=== PATIENT | female | born 1985 | race Caucasian/White ===

== ENCOUNTER → 2016-10-22 | Outpatient (CLI) | payer BC ==
[~2016-10-22] MED LIST: ACET-749 PO; LEVO125T5 PO; PRENTAB26 PO
== END | disposition home or self-care (01) ==
LOC: C.LABSPEC 17:36
PROVIDERS: ATTEND Physician Assistant
DX: L29.8 Other pruritus (principal)

== ENCOUNTER → 2017-08-09 | Outpatient (CLI) | payer BC | END | disposition home or self-care (01) | LOC: C.LAB1850 15:38 | PROVIDERS: ATTEND Obstetrics & Gynecology | DX: Z34.90 Encounter for supervision of normal pregnancy, unspecified, unspecified trimester (principal); Z3A.00 Weeks of gestation of pregnancy not specified ==

== ENCOUNTER → 2017-08-11 | Outpatient (CLI) | payer BC | END | disposition home or self-care (01) | LOC: C.LAB1850 16:08 | PROVIDERS: ATTEND Obstetrics & Gynecology | DX: Z34.90 Encounter for supervision of normal pregnancy, unspecified, unspecified trimester (principal) ==

== ENCOUNTER → 2017-09-01 | Outpatient (CLI) | payer BC ==
[~2017-09-01] MED LIST changes: +IBUP-1050 PO; +MISCCAP80 PO; +MULT-506 PO; +SULFASALAZINE PO
== END | disposition home or self-care (01) ==
LOC: C.LAB1850 11:45
PROVIDERS: ATTEND Obstetrics & Gynecology
DX: O02.1 Missed abortion (principal)

== ENCOUNTER → 2017-09-08 | Outpatient (CLI) | payer BC ==
[2017-09-08 17:20] LABS: BASO % 0.3 %; BASO ABS # 0.02 K/uL (0-0.2); EOS % 0.8 %; EOS ABS # 0.05 K/uL (0-0.5); HEMATOCRIT 34.9 % (37-47); HEMOGLOBIN 12.3 g/dL (12.0-16.0); IG# 0.01 K/uL (0.00-0.02); LYMPH % 28.8 %; LYMPH ABS # 1.76 K/uL (1.2-3.4); MEAN CORPUSCULAR HEMOGLOBIN 31.4 pg (25-34); MEAN CORPUSCULAR HGB CONC 35.2 g/dl (32-36); MEAN PLATELET VOLUME 9.3 fL (7.4-10.4); MONO ABS # 0.43 K/uL (0.11-0.59); NEUT % 62.9 %; NEUT ABS # 3.84 K/uL (1.4-6.5); PLATELET COUNT 271 K/uL (130-400); RED CELL DISTRIBUTION WIDTH CV 12.4 % (11.5-14.5); RED CELL DISTRIBUTION WIDTH SD 39.8 fL (36.4-46.3); WHITE BLOOD COUNT 6.11 K/uL (4.8-10.8)
== END | disposition home or self-care (01) ==
LOC: C.LAB1850 16:45
PROVIDERS: ATTEND Obstetrics & Gynecology
DX: Z01.818 Encounter for other preprocedural examination (principal)

== ENCOUNTER → 2017-09-09 | Day surgery (SDC) | payer BC ==
[2017-09-08 11:48] VITALS: BMI 24.0
--- NOTE | 2017-09-08 17:31 | HISTORY & PHYSICAL EXAMINATION ---
DATE OF ADMISSION: 09/09/2017 PREOPERATIVE HISTORY AND PHYSICAL ADMITTING DIAGNOSES: 1. Missed . 2. Failed medical therapy. ADMISSION HISTORY: The patient is a 32-year-old 6, para 3-0-2-3 at approximately 10 weeks gestational age who is admitted for a suction D&E for missed AB. The patient's missed AB was diagnosed 2 weeks ago on ultrasound, which showed an intrauterine with no cardiac activity. The patient elected to follow this expectantly to see if she would miscarry on her own, a week later there had been no bleeding. The patient had a repeat ultrasound which showed no change and she opted for Cytotec induction. The patient received 800 mcg of Cytotec 24 hours apart x2. She had some spotting, but no passages of tissue. Treatment options were discussed further and she has opted for surgical evacuation of uterine contents. PAST MEDICAL HISTORY: OBSTETRICAL: x3. GYNECOLOGICAL: As above. MEDICAL: Manning syndrome, hypothyroidism, primary aldosteronism, psoriasis arthropathy, and seborrheic dermatitis. SURGICAL: Laparoscopic cholecystectomy, hip replacement, wisdom teeth extraction, and shoulder surgery. ALLERGIES: No known drug allergies. MEDICATIONS: Levothyroxine. SOCIAL HISTORY: No smoking. FAMILY HISTORY: Noncontributory. REVIEW OF SYSTEMS: As per HPI. ADMISSION PHYSICAL EXAMINATION: GENERAL: Shows a pleasant female in no acute distress. VITAL SIGNS: Blood pressure 120/76, height of 5 feet 5 inches, a weight of 144 pounds. HEENT EXAMINATION: Unremarkable. NECK: Supple. LUNGS: Clear. HEART: With a regular rhythm and rate. ABDOMEN: Soft, nontender. PELVIC: Shows normal external genitalia. The vaginal vault is pink and rugated. Cervical os is multiparous and closed. Bimanual examination shows an anterior 8-9 week size uterus. Adnexa show no palpable masses. RECTAL: Confirmatory. EXTREMITIES: Shows no deep calf tenderness. NEUROLOGIC: Grossly intact. IMPRESSION: A 32-year-old 6, para 3-0-2-3 at 10 weeks gestational age for suction dilation and evacuation for missed . PLAN: The risks, benefits and alternatives to the surgery have been discussed. While the benefits will be removal of gestational tissue, the risks are bleeding, infection, inadvertent perforation of the uterus, and failure to remove all gestational tissue. The patient understands, the permit has been signed, and she wishes to proceed. MTDD
[~2017-09-09] VITALS: Ht 162.6 cm; Wt 64.1 kg
[~2017-09-09] MED LIST changes: -ACET-749 PO; +ATROPINE SULFATE 0.1 MG/ML 5ML SYR IV PRN; +CARBOPROST TROMETHAMINE 250 MCG/ML AMP ONE; +CHECK SCOPOLAMINE PATCH PLACEMENT SCH; +DOXYCYCLINE HYCLATE 100 MG CAP PO SCH; +DOXYCYCLINE HYCLATE 100 MG CAP PO STA; +EpHEDrine SULFATE INJ 50 MG/ML AMP IV PRN; +FENTANYL CITRATE INJ 50 MCG/1 ML 2 ML VIAL IV PRN; +FENTANYL CITRATE INJ 50 MCG/1 ML 2 ML VIAL ONE; +HYDROmorphone INJ 1 MG/ML SYR IV PRN; +KETOROLAC TROMETHAMINE 30 MG/ML VIAL ONE; +LACTATED RINGER'S 1000ML 1,000 ML IV SCH; +LIDOCAINE HCL 2% 2 ML VIAL (20MG/ML) ONE; +METHYLERGONOVINE MALEATE 0.2 MG/ML AMP ONE; +MIDAZOLAM HCL 1 MG/ML 2ML VIAL ONE; +NURSING VERBAL MED ORDER ONE; +ONDANSETRON INJ 2 MG/ML 2 ML VIAL IV PRN; +ONDANSETRON INJ 2 MG/ML 2 ML VIAL ONE; +OXYCODONE/ACETAMINOPHEN 5-325 TAB PO PRN; -PRENTAB26 PO; +PROMETHAZINE HCL INJ 25 MG in SODIUM CHLORIDE 0.9% 50ML 50 ML IV PRN; +PROPOFOL IV EMULSION 10 MG/ML 20 ML VIAL IV ONE; +SCOPOLAMINE 1.5 MG TDSY TD ONE; +SILVER NITR/POTASSIUM NITRATE APPLICATOR ONE; +SODIUM CHLORIDE 0.9% 1000ML 1,000 ML IV SCH
[2017-09-09 10:31] VITALS: BP 140/70; PULSE 70; TEMP 36.7; O2SAT 100; Ht 162.6 cm; Wt 64.1 kg
--- NOTE | 2017-09-09 12:51 | History & Physical Bridge Note ---
H&P Re-Evaluation Bridge Note: I have examined the patient, reviewed the History & Physical and in the interval since the performance of the History & Physical I have noted the following changes of clinical significance: Discussed informed consent with patient; she had previously signed this in the office after counseling with Dr Puente. All questions answered. Will proceed with surgery.
--- NOTE | 2017-09-09 13:30 | [facility] Post Operative Brief Note ---
Immediate Operative Summary Operative Date Sep 09, 2017. Pre-Operative Diagnosis Missed Post-Operative Diagnosis Missed Procedure(s) Performed Dilation and Evacuation Surgeon Dr Lawson Manager Project Surgeon(s) None Estimated Blood Loss 100cc Findings Consistent with Post-Op Diagnosis Specimens A: Products of Conception Drains bladder drained prior to procedure Anesthesia Type General Complication(s) none Disposition Accompanied Pt To Recover: no Disposition: Recovery Room / PACU
--- NOTE | 2017-09-09 13:37 | Discharge Instructions ---
Discharge Instructions Date of Service Sep 09, 2017. Visit Reason for Visit: Missed Discharge Discharge Diagnosis / Problem: Same Discharge Goals Goal(s): Therapeutic intervention Activity Recommendations Activity Limitations: per Instructions/Follow-up section Anesthesia . Post Anesthesia Instructions: If you have had General Anesthesia or IV Sedation: * Do not drive today. * Resume driving when surgeon permits. * Do not make important decisions or sign legal documents today. * Call surgeon for: 1. Temperature elevations greater than 101 degrees F. 2. Uncontrollable pain. 3. Excessive bleeding. 4. Persistent nausea and vomiting. 5. Medication intolerance (nausea, vomiting or rash). * For nausea and vomiting use only clear liquids such as: tea, soda, bouillon until nausea subsides, then gradually increase diet as tolerated. * If you have any concerns or questions, call your surgeon's office. If physician is unavailable and it is an emergency, call 911 or go to the nearest emergency room. . Instructions / Follow-Up Instructions / Follow-Up ACTIVITY RECOMMENDATIONS: * Avoid tampons, douching, hot tubs, pools, and intercourse until bleeding has stopped. * May shower as usual. * No strenuous activity for 24-48 hours. After 24-48 hours, you may do anything you feel like doing (driving and sports are okay). SPECIAL CARE INSTRUCTIONS: Special Diet: * Mild nausea may occur in the immediate post-operative period. * Take clear liquids such as tea, cola or bouillon until all nausea has subsided; you may then resume your normal diet. Special Care: * Light bleeding and vaginal spotting can last from a few days to 3-4 weeks. Call your doctor if bleeding becomes heavier than the heaviest part of your period. * Check your temperature twice a day for one week. If it goes above 100.4 degrees Fahrenheit (38.0 Celsius), notify your doctor. * Call your doctor's office for an appointment for 6 weeks after your surgery. FOLLOW-UP VISIT: Call your doctor's office for an appointment for 2 weeks after your surgery. E-PRESCRIPTION FOR FLAGYL (antibiotic, used to prevent infection after D&E) WAS SENT TO [facility] FOR [facility]. Diet Recommendations Recommended Home Diet: resume previous diet Procedures Procedures Performed: Dilation and Evacuation Pending Studies Studies pending at discharge: no Medical Emergencies . Who to Call and When: Medical Emergencies: If at any time you feel your situation is an emergency, please call 911 immediately. . Non-Emergent Contact Non-Emergency issues call your: Primary Care Provider, Piece Worker . . "Provider Documentation" section prepared by Osiris Lawson. .
--- NOTE | 2017-09-09 13:50 | DIAGNOSTIC IMAGING REPORT ---
INTRAOPERATIVE PELVIC ULTRASOUND GUIDANCE CLINICAL HISTORY: MrChai Portion. COMPARISON STUDY: None. FINDINGS: Transabdominal scanning of the pelvis was performed for intraoperative guidance. The initial image demonstrates a cystic area within the endometrium which could represent a gestational sac. The following images demonstrate evacuation of this cystic area. The final image demonstrates gas within the normal thickness endometrium. IMPRESSION: Intraoperative pelvic ultrasound guidance provided for dilatation and evacuation. Electronically signed by: Mekhi Mcneil M.D. 09/09/2017 1:48 PM Dictated Date/Time: 09/09/2017 1:47 PM
[2017-09-09 14:30] VITALS: BP 115/73; PULSE 77; TEMP 36.5; O2SAT 98
[2017-09-09 14:56] LABS: CALCIUM 8.3 mg/dl (8.5-10.1); CREATININE 0.49 mg/dl (0.60-1.20); POTASSIUM 3.9 mmol/L (3.5-5.1)
[2017-09-09 15:00] VITALS: BP 117/74; PULSE 76; TEMP 36.5; O2SAT 97
--- NOTE | 2017-09-09 15:15 | Anesthesiology Progress Note ---
Anesthesia Post Op Note Date & Time Sep 09, 2017 at 15:06 Vital Signs Pain Intensity: 2 Vital Signs Past 12 Hours Date Time Temp Pulse Resp B/P (MAP) Pulse Ox O2 Delivery O2 Flow Rate FiO2 09/09/17 14:30 36.5 77 16 115/73 98 Room Air 09/09/17 14:20 77 15 128/78 97 Room Air 09/09/17 14:10 36.3 72 13 122/75 98 Room Air 09/09/17 14:00 80 13 127/79 100 Oxymask 10 09/09/17 13:50 79 20 125/84 100 Oxymask 10 09/09/17 13:40 36.2 103 12 140/94 100 Oxymask 10 09/09/17 10:31 36.7 70 16 140/70 (93) 100 Room Air Notes Mental Status: alert / awake / arousable, participated in evaluation Pt Amnestic to Procedure: Yes Nausea / Vomiting: adequately controlled Pain: adequately controlled Airway Patency, RR, SpO2: stable & adequate BP & HR: stable & adequate Hydration State: stable & adequate Anesthetic Complications: no major complications apparent The patient is a 32 y/o female s/p D & E with Dr. Lawson for missed AB. Intraoperatively, prior to induction the patient was noted to have frequent PVCs. She stated that she was asymptomatic denying any palpitations, chest pain or shortness of breath and her vital signs were all normal. She denied a history of PVCs or palpitations. The patient was induced under GA and her ectopy seemed to resolve. In recovery, the patient was again noted to have PVCs , She was asymptomatic and all vital signs were normal.. The patient denied a history of PVCs. A PRP and Magnesium level were drawn. All electrolytes were normal other that the calcium which was 8.3, barely below normal. I informed the patient that her ectopy may be due to a sympathetic response from her recent stress and anxiety, however I recommended that she follow up with her PCP. I also instructed the patient to go to the ED with any chest pain, shortness of breath, lightheaded or dizziness, rapid or irregular heart beat or with any other concerns. The patient understands and agrees. The patient felt well on discharge with no complaints.
--- NOTE | 2017-09-09 22:07 | OPERATIVE REPORT ---
DATE OF OPERATION: 09/09/2017 PREOPERATIVE DIAGNOSIS: Missed . POSTOPERATIVE DIAGNOSIS: Same. PROCEDURE PERFORMED: Dilation and evacuation. SURGEON: Osiris Lawson DO. MANAGER UNDERWRITING: None. ESTIMATED BLOOD LOSS: 100 mL. FINDINGS: Consistent with ultrasound visualization of empty uterine cavity at conclusion of the procedure. SPECIMENS: Products of conception. DRAINS: Bladder drained prior to procedure for 200 mL of clear yellow urine. ANESTHESIA: General. COMPLICATIONS: None. DISPOSITION: Stable and good to recovery room. INDICATIONS FOR PROCEDURE: The patient is a 32-year-old -0-2-3 at approximately 10 weeks gestational age who had diagnosed 9 week miscarriage in the office by ultrasound. She had received 2 doses of Cytotec 24 hours apart. She did have some mild spotting, but no passage of products of conception. The patient elected to have dilation and evacuation performed. DESCRIPTION OF PROCEDURE: The patient was seen in the preoperative holding area where risks, benefits, alternatives to surgery were reviewed. She elected to proceed with surgery. Questions were answered. The patient was taken to the operating room where general anesthesia was administered. She was prepared in the usual sterile fashion with feet in Yellofin stirrups in the dorsal lithotomy position. A weighted speculum was placed in the vagina. Cervix was visualized. Anterior lip was grasped with a single tooth tenaculum. The ultrasound guidance was employed during the case. An ultrasound showed a debri filled gestational sac, no visualized fetus or heartbeat. The cervix was gently dilated to admit a 10 mm curved plastic curette. This was used for the suction evacuation of the contents of the uterus. Three passes of the suction curette were performed under direct ultrasound visualization. At the conclusion of this, the uterine contents were visually empty. The patient received 1 dose of Methergine to help with hemostasis. All instruments were removed from the vagina and excellent hemostasis was observed. The patient was awoken from anesthesia and taken to the postoperative recovery area in stable and good condition. She will receive doxycycline antibiotic in the postoperative area for antibiotic prophylaxis as well as a prescription of Flagyl for the next 5 days twice daily. She has a 2-week followup postoperative appointment in the office. I attest to the content of the Intraoperative Record and any orders documented therein. Any exception s are noted below.
== END | disposition home or self-care (01) ==
LOC: C.ACU 10:07
PROVIDERS: ATTEND Obstetrics & Gynecology
DX: O02.1 Missed abortion (principal); E80.4 Gilbert syndrome; E03.9 Hypothyroidism, unspecified; E26.09 Other primary hyperaldosteronism; L40.50 Arthropathic psoriasis, unspecified; L21.9 Seborrheic dermatitis, unspecified; Z90.710 Acquired absence of both cervix and uterus; Z96.649 Presence of unspecified artificial hip joint

== ENCOUNTER → 2018-01-11 | Outpatient (CLI) | payer BC ==
[~2018-01-11] MED LIST changes: -ATROPINE SULFATE 0.1 MG/ML 5ML SYR IV PRN; -CARBOPROST TROMETHAMINE 250 MCG/ML AMP ONE; -CHECK SCOPOLAMINE PATCH PLACEMENT SCH; -DOXYCYCLINE HYCLATE 100 MG CAP PO SCH; -DOXYCYCLINE HYCLATE 100 MG CAP PO STA; -EpHEDrine SULFATE INJ 50 MG/ML AMP IV PRN; -FENTANYL CITRATE INJ 50 MCG/1 ML 2 ML VIAL IV PRN; -FENTANYL CITRATE INJ 50 MCG/1 ML 2 ML VIAL ONE; -HYDROmorphone INJ 1 MG/ML SYR IV PRN; -KETOROLAC TROMETHAMINE 30 MG/ML VIAL ONE; -LACTATED RINGER'S 1000ML 1,000 ML IV SCH; -LIDOCAINE HCL 2% 2 ML VIAL (20MG/ML) ONE; -METHYLERGONOVINE MALEATE 0.2 MG/ML AMP ONE; -MIDAZOLAM HCL 1 MG/ML 2ML VIAL ONE; -NURSING VERBAL MED ORDER ONE; -ONDANSETRON INJ 2 MG/ML 2 ML VIAL IV PRN; -ONDANSETRON INJ 2 MG/ML 2 ML VIAL ONE; -OXYCODONE/ACETAMINOPHEN 5-325 TAB PO PRN; -PROMETHAZINE HCL INJ 25 MG in SODIUM CHLORIDE 0.9% 50ML 50 ML IV PRN; -PROPOFOL IV EMULSION 10 MG/ML 20 ML VIAL IV ONE; -SCOPOLAMINE 1.5 MG TDSY TD ONE; -SILVER NITR/POTASSIUM NITRATE APPLICATOR ONE; -SODIUM CHLORIDE 0.9% 1000ML 1,000 ML IV SCH
== END | disposition home or self-care (01) ==
LOC: C.LABSPEC 16:03
PROVIDERS: ATTEND Obstetrics & Gynecology
DX: Z11.3 Encounter for screening for infections with a predominantly sexual mode of transmission (principal)